=== PATIENT | female | born 1960 | race Caucasian/White ===

== ENCOUNTER 2018-02-20 18:15 | Emergency (ER) | payer BC | END 2018-02-20 20:05 | disposition home or self-care (01) | LOC: ER 18:15 | DX: H53.8 Other visual disturbances (principal) | CPT/HCPCS: 99281 ==

== ENCOUNTER → 2021-05-02 | Outpatient (CLI) | payer BC ==
[2018-02-20 18:20] VITALS: BP 150/95
--- NOTE | 2021-05-02 09:20 | RAD ---
EXAMINATION: US ABDOMEN LIMITED INDICATION: 60 years, Female, right upper quadrant abdominal pain. COMPARISON: None TECHNIQUE: Grayscale, color Doppler and limited spectral Doppler images of the right upper quadrant w ere obtained. FINDINGS: LIVER: SIZE (LENGTH): 14.8 cm. ECHOGENICITY: Increased PARENCHYMA: Heterogeneous echotexture. No discrete focal lesion. INTRAHEPATIC BILE DUCTS: Nondilated. PORTAL VEIN: Patent with normal hepatopedal flow. GALLBLADDER: GALLBLADDER WALL THICKNESS: 2 mm MORPHOLOGY: Normal morphology. No wall hyperemia or pericholecystic free fluid. LUMEN: Multiple cholelithiasis. COMMON BILE DUCT DIAMETER: 4.2 mm RIGHT KIDNEY: MEASURES: 11.7 cm in length. MORPHOLOGY/PARENCHYMA: Normal corticomedullary differentiation with no shadowing calculus or discrete masses. COLLECTING SYSTEM: No hydronephrosis. PANCREAS: VISUALIZED PORTIONS: Body APPEARANCE: Within normal limits. OTHER: RETROPERITONEUM, INFERIOR VENA CAVA: Normal caliber. AORTA: Obscured by overlying bowel gas. FLUID:No free fluid. IMPRESSION: 1. Multiple cholelithiasis without sonographic evidence of acute cholecystitis. 2. Moderate to severe diffuse hepatic steatosis. Electronically signed by: Aviva Ray MD (05/02/2021 9:18 AM) [id number]
== END ==
LOC: US 07:49
PROVIDERS: ATTEND Family Medicine
DX: K80.20 Calculus of gallbladder without cholecystitis without obstruction (principal); K76.0 Fatty (change of) liver, not elsewhere classified; R07.9 Chest pain, unspecified; R10.11 Right upper quadrant pain
CPT/HCPCS: 76705

== ENCOUNTER 2021-09-16 08:57 | Emergency (ER) | payer BC ==
[~2021-09-16] VITALS: Ht 162.6 cm; Wt 92.7 kg
[2021-09-16] MEDS ORDERED: diphenhydrAMINE 50 MG/ML VIAL IVP ONE (10:00)
[2021-09-16] MEDS ORDERED: IV NORMAL SALINE 1000ML BAG 1,000 ML IV ONE (10:00)
[2021-09-16] MEDS ORDERED: PROCHLORPERAZINE 10 MG/2 ML VIAL. IV ONE (10:00)
--- NOTE | 2021-09-16 10:11 | PHYS DOC ---
Past Medical History Past Medical History: Other Additional Past Medical Histor: torn retina Past Surgical History: Other Additional Past Surgical Histo: right eye Smoking Status: Never Smoker Alcohol Use: None Drug Use: None General Adult EDM: Chief Complaint: FLU SYMPTOM HPI: HPI: Patient is a 60 year old female who tested positive for Covid on 09/14 who presents with headache. States that headache started on Sunday and led to her being seen at [facility] where she tested positive. Headache is left-sided, throbbing, centers behind the left ear. No fevers or chills. Has minimal cough. No significant shortness of breath. Denies nausea/vomiting. Is able to move her neck freely. Does state this is the worst headache of her life. It was gradual onset rather than sudden. Took Excedrin prior to arrival. Denies any pertinent past medical history. Not on any medications. No speech difficulty, vision changes, weakness, numbness Review of Systems: Review of Systems: Constitutional: Denies fever or chills. [] Eyes: Denies change in visual acuity. [] HENT: Denies nasal congestion or sore throat. [] Respiratory: Reports cough. Denies shortness of breath. [] Cardiovascular: Denies chest pain or edema. [] GI: Denies abdominal pain, nausea, vomiting, bloody stools or diarrhea. [] : Denies dysuria. [] Musculoskeletal: Denies back pain or joint pain. [] Integument: Denies rash. [] Neurologic: Reports headache. Denies focal weakness or sensory changes. [] Endocrine: Denies polyuria or polydipsia. [] Lymphatic: Denies swollen glands. [] Psychiatric: Denies depression or anxiety. [] Heart Score: C/O Chest Pain: No Current Medications: Current Medications Medications (Trade) Dose Ordered Sig/Shilpi Start Time Stop Time Status Last Admin Dose Admin Diphenhydramine HCl (Benadryl) 25 mg 1X ONCE 09/16/21 10:00 09/16/21 10:01 DC Prochlorperazine Edisylate (Compazine) 10 mg 1X ONCE 09/16/21 10:00 09/16/21 10:01 DC Sodium Chloride 1,000 ml @ 1,000 mls/hr 1X ONCE 09/16/21 10:00 09/16/21 10:59 Allergies: Allergies: Allergies Coded Allergies Type Severity Reaction Last Updated Verified No Known Drug Allergies 02/20/18 No Physical Exam: PE: Constitutional: Well developed, well nourished, no acute distress, non-toxic appearance. [] HENT: Right ear canal impacted with cerumen. Left ear canal normal appearance. TM normal on left. Normal mastoid, without evidence of swelling, redness. Eyes: PERRLA, EOMI, conjunctiva normal, no discharge. [] Neck: Normal range of motion, no tenderness, supple, no stridor. Chin to chest without discomfort. No meningismus. Cardiovascular:Heart rate regular rhythm, no murmur [] Lungs & Thorax: Bilateral breath sounds clear to auscultation [] Abdomen: Bowel sounds normal, soft, no tenderness, no masses, no pulsatile masses. [] Skin: Warm, dry, no erythema, no rash. [] Back: No tenderness, no CVA tenderness. [] Extremities: No tenderness, no cyanosis, no clubbing, ROM intact, no edema. [] Neurologic: Alert, oriented to person, place, time. Face is symmetric. Speech is normal. Cranial nerves III-XII intact. 5/5 strength in bilateral upper and lower extremities in all dermatomes. No dysmetria with tmgxzi-ch-akec or koyi-sp-hlcx testing. Gait is stable. Psychologic: Affect normal, judgement normal, mood normal. [] Current Patient Data: Vital Signs: Vital Signs Date Time Temp Pulse Resp B/P (MAP) Pulse Ox O2 Delivery O2 Flow Rate FiO2 09/16/21 09:28 98.6 95 27 111/65 (80) 95 Room Air 98.6 EKG: EKG: [] Radiology/Procedures: Radiology/Procedures: [] Impression: [facility] [address] [place], [place] [id number] IMAGING REPORT Signed PATIENT: AMMON PULIDO FACCOUNT: [id number] : 1960 LOCATION: ER AGE: 60 SEX: F EXAM STATUS: REG ER ORD. PHYSICIAN: MIRIAN OCASIO MD REASON: RULE OUT VENOUS THROMBOSIS, VENOUS PHASE PLEASE PROCEDURE: CT ANGIOGRAPHY HEAD CTA HEAD, CT HEAD/BRAIN WO History:Reason: Pain. Headache. RULE OUT VENOUS THROMBOSIS, VENOUS PHASE PLEASE / Spl. Instructions: 75ml / History: Technique: Noncontrast head CT was performed. CT venogram was also performed. Multiplanar reconstructions were performed. Exposure: One or more of the following individualized dose reduction techniques were utilized for this examination: 1. Automated exposure control 2. Adjustment of the mA and/or kV according to patient size 3. Use of iterative reconstruction technique. Comparison: None. Any determination of stenosis is based on NASCET criteria. Noncontrast CT head: No intracranial hemorrhage. No mass effect. No hydrocephalus. Partially empty sella, often incidental. Imaged orbits are unremarkable. Left maxillary sinus fluid with frothy secretions and mucosal thickening. Mild ethmoid sinus mucosal thickening. Mastoid air cells are clear. Head CTV: ICA: No stenosis, occlusion or aneurysm. MCA: No stenosis, occlusion or aneurysm. AZUCENA: No stenosis, occlusion or aneurysm. RASPBERRY CHECKER: No stenosis, occlusion or aneurysm. Basilar artery: No stenosis, occlusion or aneurysm. Distal vertebral arteries: No stenosis, occlusion or aneurysm. Impression: Noncontrast CT head: 1. No acute intracranial abnormality. 2. Left maxillary sinus fluid and secretions, can be seen with acute sinusitis in the appropriate clinical setting. CT venogram: 1. No evidence of dural venous sinus thrombosis. Electronically signed by: Sudhir Davis DO (09/16/2021 12:56 PM) [id number] DICTATED and SIGNED BY: SUDHIR DAVIS DO DATE: 09/16/21 [id number] 0 Course & Med Decision Making: Course & Med Decision Making Pertinent Labs and Imaging studies reviewed. (See chart for details) Patient is 60-year-old female who is Covid positive who presents with headache. Neuro exam is normal. Headache not sudden onset/thunderclap. Doubt SAH. No history of hypercoagulability/VTE. Not on estrogen-containing medications. She does have Covid, which may predispose to CVT. We will pursue CT venogram. No fever/chills, meningismus, doubt meningitis. Do not feel that she requires LP. Will treat with compazine, benadryl, IVF, ketorolac. [address] venogram without evidence of CVT and CT head without acute process. Potential left maxillary sinusitis likely viral in the setting of Covid. Feel she is safe for outpatient management at this time. [id number] Dane Disclaimer: Dane Disclaimer: This electronic medical record was generated, in whole or in part, using a voice recognition dictation system. Departure Departure Impression: Primary Impression: Headache Additional Impressions: Sinusitis COVID-19 Disposition: HOME / SELF CARE / HOMELESS Condition: STABLE Referrals: ALYSA BABB MD (PCP) Schedule a follow up appointment as you recover from your infection. Patient Instructions: Sinusitis Additional Instructions: Your head CT was reassuring against dangerous causes of headache like a blood clot. It did show some inflammation in your sinuses, which are likely related to your Covid infection. Therefore, I do not feel they would benefit from antibiotics at this time. Please follow-up with your primary care doctor as your symptoms improve. If you have increasing shortness of breath you can return to the emergency department for any time for reevaluation. MIRIAN OCASIO MD Sep 16, 2021 10:11
[2021-09-16] MEDS ORDERED: KETOROLAC 15 MG/ML VIAL. IVP ONE (10:15)
[2021-09-16 10:46] LABS: CALCIUM 8.2 mg/dL (8.5-10.1); CREATININE 0.9 mg/dL (0.6-1.0); GFR 63.7; POTASSIUM 3.5 mmol/L (3.5-5.1)
[2021-09-16] MEDS ORDERED: IOHEXOL 300 MG/ML 100ML VIAL. IV ONE (11:00)
[2021-09-16 12:43] VITALS: BP 107/59
--- NOTE | 2021-09-16 12:59 | RAD ---
CTA HEAD, CT HEAD/BRAIN WO History:Reason: Pain. Headache. RULE OUT VENOUS THROMBOSIS, VENOUS PHASE PLEASE / Spl. Instructions: 75ml / History: Technique: Noncontrast head CT was performed. CT venogram was also performed. Multiplanar reconstruct ions were performed. Exposure: One or more of the following individualized dose reduction techniques were utilized for thi s examination: 1. Automated exposure control 2. Adjustment of the mA and/or kV according to patient size 3. Use of iterative reconstruction technique. Comparison: None. Any determination of stenosis is based on NASCET criteria. Noncontrast CT head: No intracranial hemorrhage. No mass effect. No hydrocephalus. Partially empty sella, often incidental . Imaged orbits are unremarkable. Left maxillary sinus fluid with frothy secretions and mucosal thicken ing. Mild ethmoid sinus mucosal thickening. Mastoid air cells are clear. Head CTV: ICA: No stenosis, occlusion or aneurysm. MCA: No stenosis, occlusion or aneurysm. AZUCENA: No stenosis, occlusion or aneurysm. VULNERABILITY ASSESSMENT ANALYST: No stenosis, occlusion or aneurysm. Basilar artery: No stenosis, occlusion or aneurysm. Distal vertebral arteries: No stenosis, occlusion or aneurysm. Impression: Noncontrast CT head: 1. No acute intracranial abnormality. 2. Left maxillary sinus fluid and secretions, can be seen with acute sinusitis in the appropriate cl inical setting. CT venogram: 1. No evidence of dural venous sinus thrombosis. Electronically signed by: Sudhir Davis DO (09/16/2021 12:56 PM) [id number]
[2021-09-16] MEDS ORDERED: PROC10TA57 PO ×2 (13:33→14:39)
--- NOTE | 2021-09-17 04:37 | EKG ---
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
== END 2021-09-16 13:56 | disposition home or self-care (01) ==
LOC: ER 08:57
DX: U07.1 COVID-19 (principal); J32.9 Chronic sinusitis, unspecified
CPT/HCPCS: 36415; 70450; 70496; 80048; 96361; 96374; 96375; 99285; J0780; J1200; J1885; J7030; Q9967; 93005

== ENCOUNTER 2021-09-19 15:42 | Emergency (ER) | payer BC ==
[~2021-09-19] VITALS: Ht 162.6 cm; Wt 89.6 kg
[~2021-09-19 15:42] MED LIST: PROC10TA57 PO
--- NOTE | 2021-09-19 16:25 | PHYS DOC ---
Past Medical History Past Medical History: Other Additional Past Medical Histor: torn retina Past Surgical History: Other Additional Past Surgical Histo: right eye Smoking Status: Never Smoker Alcohol Use: None Drug Use: None General Adult EDM: Chief Complaint: HEADACHE HPI: HPI: Patient is a 60 year old female who presents here with headache symptoms. This is her third ER visit within less than a week for the same symptoms. She was diagnosed with COVID-19 infection within the last week. She was seen at [facility], had a negative head CT at that time. She presented here 3 days ago for the same headache, had a negative head CT at that time as well. She reports no acute changes. She denies photophobia, vision changes, numbness, tingling, motor weakness. She denies chest pain. She has a cough. She denies dyspnea. She denies neck pain or stiffness. She has not had a fever. She denies abdominal pain. She denies nausea or vomiting. She denies fall or head injury. She denies syncope. Denies thunderclap headache symptoms. She has taken [id number]-bgl-cwpfqow medications with little relief. She reported to the nurse that she had apparently taken ibuprofen earlier today, though she reports that she had taken nothing today to me. She is requesting something stronger for her pain. She is not vaccinated against COVID-19. Review of Systems: Review of Systems: Constitutional: Denies fever or chills. [] Eyes: Denies change in visual acuity. [] HENT: Reports nasal congestion. Denies sore throat. Respiratory: Reports dry cough. Denies dyspnea. Cardiovascular: Denies chest pain or edema. [] GI: Denies abdominal pain, nausea, vomiting, or diarrhea. : Denies urinary symptoms. Musculoskeletal: Denies back pain or joint pain. [] Integument: Denies rash. [] Neurologic: Reports headache. Denies focal weakness, numbness, tingling. Denies dizziness or vertigo. Denies syncope. Psychiatric: Denies depression or anxiety. [] Heart Score: C/O Chest Pain: No Risk Factors: Risk Factors: DM, Current or recent (<one month) smoker, HTN, HLP, family history of CAD, obesity. Risk Scores: Score 0 - 3: 2.5% MACE over next 6 weeks - Discharge Home Score 4 - 6: 20.3% MACE over next 6 weeks - Admit for Clinical Observation Score 7 - 10: 72.7% MACE over next 6 weeks - Early Invasive Strategies Allergies: Allergies: Allergies Coded Allergies Type Severity Reaction Last Updated Verified No Known Drug Allergies 02/20/18 No Physical Exam: PE: Constitutional: Well developed, well nourished, no acute distress, non-toxic appearance. [] HENT: Normocephalic, atraumatic, oropharynx is patent and clear. Mucous membranes are tacky. TMs are clear bilaterally. Eyes: PERRL, EOMI, conjunctiva normal, no discharge. No nystagmus. Sclera are anicteric. Neck: Normal range of motion, no tenderness, supple, no stridor. Trachea is midline. No meningismus. Cardiovascular:Heart rate regular rhythm, 2 radial and +2 posterior tibial pulses bilaterally. Lungs & Thorax: Mild rhonchi that clear with coughing, no tachypnea, no retractions. Dry cough is noted. No wheezes. No stridor. No distress. Abdomen: Abdomen soft, nondistended, nontender to palpation. Skin: Warm, dry, no erythema, no rash. [] Back: No tenderness, no CVA tenderness. [] Extremities: No tenderness, no cyanosis, no clubbing, ROM intact, no edema. No calf tenderness. Neurologic: She is awake, alert, oriented x3, cranial nerves II through XII grossly intact. 5 out of 5 motor strength all 4 extremities. Sensation is grossly intact. No limb ataxia. No pronator drift. No dysmetria. Speech is clear and fluent. Psychologic: Affect is flat. She is cooperative. EKG: EKG: [] Radiology/Procedures: Radiology/Procedures: [] Course & Med Decision Making: Course & Med Decision Making Pertinent Labs and Imaging studies reviewed. (See chart for details) The patient is given IV fluids, IV Toradol, IV Reglan, IV Benadryl. She is resting comfortably. She has had 2 negative head [address]s within the last week. She has a nonfocal neurologic exam. No red flag signs or symptoms regarding headache. I have discussed all the findings, differential diagnosis and plan of care with her. I explained that she must hydrate more appropriately at home. She may continue taking ibuprofen and Tylenol for pain. I explained that headac hes very often significant symptoms that are associated with COVID-19 infection. No indication for admission or further invasive exams at this time, based on current clinical presentation. I have discussed home care instructions. Return precautions are given. PO KCl replacement given prior to discharge. Room air oxygen saturation is 96-97% on my exam. She still denies dyspnea or chest pain. Helenon Disclaimer: Dane Disclaimer: This electronic medical record was generated, in whole or in part, using a voice recognition dictation system. Departure Departure Impression: Primary Impression: Headache Additional Impressions: Hypokalemia COVID-19 Disposition: 01 HOME / SELF CARE / HOMELESS Condition: STABLE Referrals: ALYSA BABB MD (PCP) Patient Instructions: General Headache Without Cause, Hypokalemia Additional Instructions: Please return to the ER for uncontrolled vomiting, dehydration, if you have any acute worsening headache, if you fall or injure yourself, if you notice severe shortness of breath or chest pain, with oxygen level below 90%, return to the ER immediately. Please stay well-hydrated. This will help your headache symptoms. Try to eat a bland diet and make sure you eat something small is 2 or 3 times a day. Try to get plenty of rest. Take axje-pvf-vilxljq Tylenol and ibuprofen for pain. You have been tested for or diagnosed with COVID-19. It is an infection caused by a new type of coronavirus. COVID-19 will cause cold-like or mild flu symptoms in most. It can cause more severe symptoms like problems breathing in some. There is no treatment for COVID-19. The body will clear the infection over time. Self-care will help to ease discomfort. Steps to Take: Self-Care Rest as needed. Healthy habits may help you feel better. Steps include: Choose healthy foods including fruits and vegetables. Drink water throughout the day. Get plenty of sleep each night. If you smoke, try to quit. It may ease breathing. Avoid alcohol. Keep Others Healthy The virus can spread to others. Droplets are released every time you sneeze or cough. The droplets can get into the mouth, nose, or eyes of people near you and lead to infection. To lower the chances of spreading COVID-19 to others: Stay at home until your doctor has said it is safe to leave. If you tested positive this will mean staying isolated until both of the following are true: At least 7 days have passed since the start of illness. You are free of fever for at least 72 hours without the use of medicine. During this time: - Avoid public areas, events, or transportation. Do not return to work or school until your doctor has said it is safe to do so. - Call ahead if you need to go to a medical center. Let them know you may have COVID-19. It will help them guide you where to go. They may also ask you to wear a facemask when you come to the office. - If you call for emergency medical services, let them know you may have COVID- 19. While at home: - Try to avoid close contact with others. Stay about 6 feet away. - If possible, spend most of your time in a separate room from others. - Use a face mask if you will be in close contact with others such as sharing a room or vehicle. - Have someone wipe down common surfaces in the home. Use household preboarder every day on areas like doorknobs, counters, or sinks. - Cough or sneeze into a tissue. Throw the tissue away right after use. If a tissue is not available, cough or sneeze into your elbow. - Wash your hands often. Wash them after sneezing or coughing. Use soap and water and wash for at least 20 seconds. Alcohol based hand pillow cleaner can be used if soap and water is not available. - Do not prepare food for others. Avoid sharing personal items like forks, spoons, or toothbrushes. - Avoid close contact with pets while you are sick. There is no evidence of the virus passing to pets. This is a safety step until more is known about this virus. Isolation can be frustrating. Social interaction can help. Keep in touch with friends and family through phone and tech options. You can still interact with others in your home, just keep a safe distance of about 6 feet. Follow-up: Your doctors office will check in with you to see if there are any changes in your health. You may be asked to keep track of symptoms to share with them. They will also let you know when you are clear to be in public again. Problems to Look Out For: Contact your doctor if your recovery is not going as you expect. Get emergency care if you have problems such as: - Trouble breathing - Nonstop chest pain or pressure - Changes in awareness, confusion, or problems waking - Lips or face have bluish color - Worsening of symptoms If you think you have an emergency, call for emergency medical services right away. [facility] DO Sep 19, 2021 16:25
[2021-09-19] MEDS ORDERED: KETOROLAC 15 MG/ML VIAL. IVP ONE (16:45)
[2021-09-19] MEDS ORDERED: diphenhydrAMINE 50 MG/ML VIAL IVP ONE (16:45)
[2021-09-19] MEDS ORDERED: METOCLOPRAMIDE HCL 10 MG/2 ML VIAL. IVP ONE (16:45)
[2021-09-19] MEDS ORDERED: IV NORMAL SALINE 1000ML BAG 1,000 ML IV ONE (16:45)
[2021-09-19 16:49] LABS: BASO % 1 % (0-3); EOS % 0 % (0-3); HEMATOCRIT 39.7 % (36.0-47.0); HEMOGLOBIN 13.3 g/dL (12.0-15.5); LYMPH # 0.8 x10^3/uL (1.0-4.8); LYMPH % 22 % (24-48); MEAN CORPUSCULAR HEMOGLOBIN 31 pg (25-35); MEAN CORPUSCULAR HGB CONC 33 g/dL (31-37); MEAN CORPUSCULAR VOLUME 91 fL (79-100); MONO # 0.3 x10^3/uL (0.0-1.1); MONO % 8 % (0-9); NEUT # 2.5 x10^3/uL (1.8-7.7); NEUT % 70 % (31-73); PLATELET COUNT 191 x10^3/uL (140-400); RED BLOOD COUNT 4.35 x10^6/uL (3.50-5.40); WHITE BLOOD COUNT 3.6 x10^3/uL (4.0-11.0)
[2021-09-19 17:27] LABS: CALCIUM 8.1 mg/dL (8.5-10.1); CREATININE 0.8 mg/dL (0.6-1.0); GFR 72.9; POTASSIUM 3.2 mmol/L (3.5-5.1)
[2021-09-19] MEDS ORDERED: POTASSIUM CHLORIDE 20 MEQ TABLET.ER. PO ONE (17:45)
[2021-09-19 17:50] VITALS: BP 118/71
== END 2021-09-19 18:12 | disposition home or self-care (01) ==
LOC: ER 15:42
DX: U07.1 COVID-19 (principal); E87.6 Hypokalemia; R51.9 Headache, unspecified
CPT/HCPCS: 36415; 80048; 85025; 96361; 96374; 96375; 99284; J1200; J1885; J2765; J7030